=== PATIENT | female | born 1950 | race Caucasian/White ===

== ENCOUNTER 2016-12-02 12:40 | Emergency (ER) | payer MEDICARE, OTHER ==
[~2016-12-02 12:40] MED LIST: ACTOS DPS30 MG PO; ASPIR 8181 MG PO; DELTASONE DPS20 MG PO; JANUMET 50-1,01 EACH PO; LIPITOR DPS20 MG PO; SYMBICORT160 MCG/6 IH; ZESTRIL DPS5 MG PO; ZITHROMAX1 GM PO; ZOLOFT DPS100 MG PO
--- NOTE | 2016-12-18 18:03 | ER ---
ADMIT: 12/02/2016 RM/LOC: ER [facility] MR#: [id number] [address] [facility] [id number] [place] [id number] [address] [place] [address] Emergency Room Report SEX: F AGE: 65 : 1950 DATE: 12/02/2016 ADDENDUM: CHIEF COMPLAINT: Left hip pain. HISTORY OF PRESENT ILLNESS: This is a 65-year-old female who fell. An x-ray was done initially. There was a questionable fracture, then did a CT and it ended up being negative for any fracture, over-read by the radiologist. CLINICAL IMPRESSION: Left groin strain and left hip contusion. DISPOSITION: Did send her home, having her use a walker. Do activity as tolerated. I sent her home with [place] for pain. Follow up if worsens. DARCY Harvey / Andi Raymond MD / modl JOB #: [id number] CC: Andi Raymond MD, Attending Physician Diallo Santizo MD, Family Physician
== END 2016-12-02 17:00 | disposition home or self-care (01) ==
LOC: ER 12:40
DX: S39.011A Strain of muscle, fascia and tendon of abdomen, initial encounter (principal); S70.02XA Contusion of left hip, initial encounter; I10 Essential (primary) hypertension; E11.9 Type 2 diabetes mellitus without complications; Z88.0 Allergy status to penicillin; Z88.2 Allergy status to sulfonamides; W54.1XXA Struck by dog, initial encounter